=== PATIENT | male | born 1980 | race Caucasian/White ===

== ENCOUNTER 2017-06-23 22:27 | Emergency (ER) | payer MEDICAID, OTHER ==
[2017-06-23] MEDS ORDERED: SODIUM CHLORIDE 0.9% 1,000 ML IV ONE (22:56)
[2017-06-23] MEDS ORDERED: LORazepam 2 MG/ML VIAL IVP STA (22:56)
[2017-06-23 23:16] LABS: BASOPHILS # (AUTO) 0.1 10^3/uL (0.0-0.1); BASOPHILS % (AUTO) 0.9 %; EOSINOPHILS # (AUTO) 0.5 10^3/uL (0.0-0.7); EOSINOPHILS % (AUTO) 5.8 %; HGB - HEMOGLOBIN 15.1 g/dL (14.0-18.0); LYMPHOCYTES # (AUTO) 2.4 10^3/uL (1.5-3.5); LYMPHOCYTES % (AUTO) 30.7 %; MEAN CORPUSCULAR HEMOGLOBIN 31.2 pg (27.0-31.0); MEAN CORPUSCULAR HGB CONC 35.1 g/dL (32.0-36.0); MEAN CORPUSCULAR VOLUME 88.8 fL (80.0-94.0); MEAN PLATELET VOLUME 6.9 fL (7.4-11.4); MONOCYTES # (AUTO) 0.6 10^3/uL (0.0-1.0); MONOCYTES % (AUTO) 7.9 %; NEUTROPHILS # (AUTO) 4.2 10^3/uL (1.5-6.6); NEUTROPHILS % (AUTO) 54.7 %; PLT - PLATELET COUNT 264 10^3/uL (130-450); RED BLOOD COUNT 4.83 10^6/uL (4.70-6.10); RED CELL DISTRIBUTION WIDTH 12.8 % (12.0-15.0); WHITE BLOOD COUNT 7.7 x10^3/uL (4.8-10.8)
[2017-06-23 23:29] LABS: ALBUMIN/GLOBULIN RATIO 1.4 (1.0-2.2); BILIRUBIN,TOTAL 0.7 mg/dL (0.2-1.0); CALCIUM 9.3 mg/dL (8.5-10.3); TOTAL PROTEIN 6.8 g/dL (6.7-8.2)
--- NOTE | 2017-06-23 23:44 | XRAY Report ---
EXAM: CHEST RADIOGRAPHY EXAM DATE: 06/23/2017 11:23 PM. CLINICAL HISTORY: Hypertension. COMPARISON: None. TECHNIQUE: 1 view. FINDINGS: Lungs/Pleura: Small nodular density seen in the left upper lobe, could represent a cross section of a vessel versus pulmonary nodule, measures 5 mm, could be infectious/inflammatory, however malignancy not excluded. Follow-up recommended. Otherwise, no acute cardiopulmonary disease seen. Mediastinum: Within exam limitations, the cardiomediastinal contour is normal. Other: Inferior aspect of the left costophrenic angle excluded from the image. IMPRESSION: Small nodular density seen in the left upper lobe, could represent a cross section of a v essel versus pulmonary nodule, measures 5 mm, could be infectious/inflammatory, however malignancy no t excluded. Follow-up recommended. Otherwise, no acute cardiopulmonary disease seen. [facility] Referring Provider Line: [phone] SITE ID: [id number]
--- NOTE | 2017-06-23 23:44 | XRAY Preliminary Report ---
Exam: XR CHEST 1 VIEW X-RAY IMPRESSION: Small nodular density seen in the left upper lobe, could represent a cross section of a v essel versus pulmonary nodule, measures 5 mm, could be infectious/inflammatory, however malignancy no t excluded. Follow-up recommended. Otherwise, no acute cardiopulmonary disease seen. [facility] SITE ID: [id number]
[2017-06-23] MEDS ORDERED: hydrALAZINE INJ 20 MG/ML VIAL IVP STA (23:51)
--- NOTE | 2017-06-24 00:26 | ED Physician Documentation ---
History of Present Illness - Stated complaint Stated Complaint: HIGH BP - Chief complaint Chief Complaint: Cardiac - History obtained from History obtained from: Patient, Family - History of Present Illness Timing: Today - Additonal information Additional information: Patient is a 36 year old male with no significant past medical history who is presenting to the emergency department for hypertension. According to patient and girlfriend this evening he was at work and he tweaked his back. Patient states that he felt a little funny so he took his blood pressure. Patient reports that it was elevated. Patient reports that he did drink coffee today and he normally doesn't and he also reports that he smokes methamphetamine every day. Review of Systems Constitutional: denies: Fever, Chills Eyes: reports: Decreased vision Ears: denies: Ear pain, Drainage/discharge Nose: denies: Rhinorrhea / runny nose, Congestion, Epistaxis Throat: denies: Dental pain / toothache Cardiac: denies: Chest pain / pressure, Palpitations, Calf pain GI: denies: Nausea, Vomiting : reports: Reviewed and negative Skin: denies: Rash, Lesions Musculoskeletal: reports: Neck pain, Back pain. denies: Extremity pain Neurologic: denies: Generalized weakness, Focal weakness, Confused, Altered mental status, Headache, Head injury Immunocompromised: denies: Immunocompromised PD PAST MEDICAL HISTORY - Past Medical History Past Medical History: Yes Musculoskeletal: Other Other Past Medical History: bone spurs - Past Surgical History Past Surgical History: No - Allergies Allergies/Adverse Reactions: Allergies Allergy/AdvReac Type Severity Reaction Status Date / Time No Known Drug Allergies Allergy Verified 06/23/17 22:38 - Social History Does the pt smoke?: Yes Smoking Status: Current every day smoker Does the pt drink ETOH?: Yes Does the pt have substance abuse?: Yes Substance Use and Type: Meth - Immunizations Immunizations are current?: Yes - POLST Patient has POLST: No PD ED PE NORMAL - Vitals Vital signs reviewed: Yes - General General: Alert and oriented X 3, No acute distress, Well developed/nourished - HEENT HEENT: Atraumatic, PERRL - Neck Neck: Supple, no meningeal sign, No JVD - Cardiac Cardiac: RRR, No murmur - Respiratory Respiratory: No respiratory distress - Abdomen Abdomen: Soft, Non tender, Non distended - Derm Derm: Normal color, Warm and dry, No rash - Extremities Extremities: No deformity, Normal ROM s pain - Neuro Neuro: Alert and oriented X 3, No motor deficit, Normal speech Eye Opening: Spontaneous Motor: Obeys Commands Verbal: Oriented GCS Score: 15 PD ED PE EXPANDED - Cardiac Cardiac: Tachy Results - Vitals Vitals: Vital Signs - 24 hr 06/23/17 06/23/17 06/24/17 22:33 23:35 00:03 Temperature 36.1 C L Heart Rate 105 H 88 84 Respiratory 20 15 14 Rate Blood Pressure 217/131 H 172/134 H 195/131 H O2 Saturation 99 99 92 06/24/17 06/24/17 06/24/17 00:08 00:13 00:18 Temperature Heart Rate Respiratory Rate Blood Pressure 160/131 H 162/108 H 182/107 H O2 Saturation 06/24/17 00:33 Temperature Heart Rate 92 Respiratory 13 Rate Blood Pressure 159/107 H O2 Saturation 92 Oxygen O2 Source Room air - EKG (time done) 2238 Rate: Rate (enter#) (98) Rhythm: NSR [place]: Normal Intervals: Normal TN QRS: Normal Ischemia: Normal ST segments Compare to prior EKG: Old EKG unavailable - Labs Labs: Laboratory Tests 06/23/17 06/23/17 06/23/17 23:05 23:05 23:05 WBC 7.7 RBC 4.83 Hgb 15.1 Hct 42.9 MCV 88.8 MCH 31.2 H MCHC 35.1 RDW 12.8 Plt Count 264 MPV 6.9 L Neut # 4.2 Lymph # 2.4 [place] # 0.6 Eos # 0.5 Baso # 0.1 Absolute Nucleated RBC 0.00 Nucleated RBC % 0.0 Sodium 142 Potassium 3.3 L Chloride 102 Carbon Dioxide 29 Anion Gap 11.0 BUN 14 Creatinine 1.0 Estimated GFR (MDRD) 84 L Glucose 117 H Calcium 9.3 Total Bilirubin 0.7 AST 25 ALT 34 Alkaline Phosphatase 59 Troponin I 0.09 Total Protein 6.8 Albumin 4.0 Globulin 2.8 Albumin/Globulin Ratio 1.4 Lipase 30 - Rads (name of study) chest x-ray Radiology: Final report received (normal) PD MEDICAL DECISION MAKING - ED course Complexity details: reviewed old records, reviewed results, re-evaluated patient , considered differential, d/w patient, d/w family ED course: Patient was seen and examined at bedside. ekg was performed and was nsr. labs were drawn. Patient was treated with ativan. Patient's chest x-ray was normal. Patient's other diagnostics were within normal limits but blood pressure was elevated. Patient was treated with hydralizine 10mg which did improve his blood pressure. Patient's was not started on medication as methamphetamines were likely contributing to the situation. patient and girlfriend were given detailed discharge and follow up instructions. patient required no further work up at this time and was stable for discharge with outpatient follow up. Departure - Departure Disposition: Home, Self Care Clinical Impression: Hypertension Condition: Good Instructions: ED Hypertension New Begin Tx Follow-Up: [facility] [Provider Group] [facility] [Provider Group] Comments: Your blood pressure was elevated today but your other tests were normal. It may be secondary to drug abuse and the first step would to be stop taking methamphetamines. If your pressures remain high then you will need further diagnostics and work up. You have been given the number of two clinics. You will will need to establish follow up care. You may return to the emergency department at any time for new, worsening or uncontrollable symptoms. Discharge Date/Time: 06/24/17 00:47
[2017-06-24 00:34] VITALS: BP 159/107
== END 2017-06-24 00:47 | disposition home or self-care (01) ==
LOC: ED 22:27
DX: I10 Essential (primary) hypertension (principal); F15.90 Other stimulant use, unspecified, uncomplicated; F17.200 Nicotine dependence, unspecified, uncomplicated
CPT/HCPCS: 36415; 71045; 80053; 83690; 84484; 85025; 93005; 96361; 96374; 96375; 99283; 99284; J2060

== ENCOUNTER 2018-05-15 18:24 | Emergency (ER) | payer MEDICAID ==
[2018-05-15] MEDS ORDERED: CEPHALEXIN 250 MG Prepack 8 PO STA (18:44)
[2018-05-15] MEDS ORDERED: TETANUS/DIPHTHERIA/PERTUSSIS 0.5 ML SYRINGE IM ONE (18:46)
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
[2018-05-15 19:00] LABS: BASOPHILS # (AUTO) 0.1 10^3/uL (0.0-0.1); BASOPHILS % (AUTO) 0.6 %; EOSINOPHILS # (AUTO) 0.1 10^3/uL (0.0-0.7); EOSINOPHILS % (AUTO) 0.9 %; HGB - HEMOGLOBIN 14.2 g/dL (14.0-18.0); LYMPHOCYTES # (AUTO) 1.3 10^3/uL (1.5-3.5); LYMPHOCYTES % (AUTO) 12.2 %; MEAN CORPUSCULAR HEMOGLOBIN 32.1 pg (27.0-31.0); MEAN CORPUSCULAR HGB CONC 35.3 g/dL (32.0-36.0); MEAN CORPUSCULAR VOLUME 90.7 fL (80.0-94.0); MEAN PLATELET VOLUME 7.4 fL (7.4-11.4); MONOCYTES # (AUTO) 0.6 10^3/uL (0.0-1.0); MONOCYTES % (AUTO) 6.3 %; NEUTROPHILS # (AUTO) 8.3 10^3/uL (1.5-6.6); PLT - PLATELET COUNT 285 10^3/uL (130-450); RED BLOOD COUNT 4.44 10^6/uL (4.70-6.10); WHITE BLOOD COUNT 10.3 x10^3/uL (4.8-10.8)
[2018-05-15 19:10] LABS: ALBUMIN/GLOBULIN RATIO 1.1 (1.0-2.2); BILIRUBIN,TOTAL 0.8 mg/dL (0.2-1.0); CALCIUM 8.9 mg/dL (8.5-10.3); TOTAL PROTEIN 7.8 g/dL (6.7-8.2)
[2018-05-15 19:17] VITALS: BP 212/132
[2018-05-15] MEDS ORDERED: LISINOPRIL 5 MG TABLET PO STA (19:20)
== END 2018-05-15 19:26 | disposition home or self-care (01) ==
LOC: ED 18:24
DX: L03.115 Cellulitis of right lower limb (principal); I10 Essential (primary) hypertension; Z23 Encounter for immunization; F17.200 Nicotine dependence, unspecified, uncomplicated
CPT/HCPCS: 36415; 80053; 83690; 85025; 90471; 90715; 99283; A9270

== ENCOUNTER 2018-05-20 16:16 | Emergency (ER) | payer MEDICAID ==
[2018-05-20] MEDS ORDERED: SULFAMETH/TRIMETH DS 800/160 MG TABLET PO STA (17:57)
[2018-05-20] MEDS ORDERED: LIDOCAINE MPF 1%-EPI 1:200000 30 ML VIAL SUBQ STA (17:57)
--- NOTE | 2018-05-20 18:37 | XRAY Report ---
Reason: Right leg swelling/redness Procedure Date: 05/20/2018 Accession Number: [id number] / [id number] Procedure: XR - Tib/Fib RT CPT Code: FULL RESULT: EXAM: RIGHT TIBIA/FIBULA RADIOGRAPHY EXAM DATE: 05/20/2018 06:14 PM. CLINICAL HISTORY: Right leg pain. COMPARISON: None. TECHNIQUE: 2 views. FINDINGS: Bones: Normal. No fracture or bone lesion. Joints: The visualized knee and ankle joints are normal. No effusions. Soft Tissues: Soft tissue swelling diffusely. IMPRESSION: Bones intact. [facility]
[2018-05-20] MEDS ORDERED: oxyCODONE 5 MG TABLET PO STA (19:35)
--- NOTE | 2018-05-20 19:52 | ED Physician Documentation ---
PD HPI SKIN - Stated complaint Stated Complaint: RT LEG PX & SWELLING - Chief complaint Chief Complaint: Ext Problem - History obtained from History obtained from: Patient - History of Present Illness Timing - onset: How many days ago (few) Timing - duration: Days (few) Timing - details: Abrupt onset, Still present (he had had onset redness and swelling lower leg and seen in ED, Dx with cellulitis and Rx with Keflex. He says general redness is less, but has increased pain and tenderness in more focal area anteriorly now.) Location: RLE Quality / character: Painful, Discolored, Swelling. No: Vesicular, Draining Associated symptoms: Myalgias. No: Fever, N/V/D Similar symptoms before: Has not had sx before Recently seen: Emergency Dept Review of Systems Constitutional: reports: Myalgias. denies: Fever, Chills GI: denies: Nausea, Vomiting, Diarrhea Skin: reports: Rash, Lesions PD PAST MEDICAL HISTORY - Past Medical History Cardiovascular: None Respiratory: None Neuro: None Endocrine/Autoimmune: None Musculoskeletal: Other - Past Surgical History Past Surgical History: No - Present Medications Home Medications: Ambulatory Orders Medication Instructions Recorded Confirmed Cephalexin [Keflex] 500 mg PO Q6H #28 capsule 05/15/18 05/20/18 Lisinopril [Prinivil] 10 mg PO DAILY #90 tablet 05/15/18 05/20/18 Oxycodone HCl/Acetaminophen 1 - 2 each PO Q6H PRN #14 tablet 05/20/18 [Percocet 5-325 mg Tablet] Sulfamethox/Trimeth 800/160 1 each PO BID #14 tablet 05/20/18 [Bactrim Ds 800/160] - Allergies Allergies/Adverse Reactions: Allergies Allergy/AdvReac Type Severity Reaction Status Date / Time No Known Drug Allergies Allergy Verified 05/20/18 16:38 - Social History Does the pt smoke?: Yes Smoking Status: Current every day smoker Does the pt drink ETOH?: Yes Does the pt have substance abuse?: Yes - Immunizations Immunizations are current?: Yes - POLST Patient has POLST: No PD ED PE NORMAL - Vitals Vital signs reviewed: Yes - General General: Alert and oriented X 3, No acute distress (but is having pain related to the leg infection), Well developed/nourished - Respiratory Respiratory: Clear bilaterally - Derm Derm: Normal color, Warm and dry, Other (right lower leg with redness and tenderness lower part anteriorly. He says the general redness is improved, but having increased local pain ) - Extremities Extremities: Other (right anteromedial lower leg with area or redness, swelling, tender and some more focal induration in about 2-3 cm area which shows fluid collection underlying with bedside U/S. ) - Neuro Neuro: Alert and oriented X 3, No motor deficit, No sensory deficit, Normal speech Results - Vitals Vitals: Oxygen O2 Source Room air - Labs Labs: Microbiology 05/20/18 19:28 Wound Culture - Final Leg - Right Staphylococcus Aureus - Rads (name of study) right tib/fib Radiology: Prelim report reviewed (normal bony structure), See rad report Procedures - Abscess I&D (location) right anterior lower leg Preparation: Confirmed with ultrasound, Lidocaine 1%, With epi Incision: Incised with scalpel, Purulent drainage, Irrigated, Culture obtained. No: Packed Other: Pt tolerated well, Dressing applied, Antibiotic prescribed PD MEDICAL DECISION MAKING - ED course Complexity details: considered differential (cellulitis had coalesced into abscess area anterior lower leg. No bony abn on xray. Did I&D and will give 2nd abx to provide better staph coverage at this point. ), d/w patient Departure - Departure Disposition: 01 Home, Self Care Clinical Impression: Encounter for wound re-check, Abscess, Cellulitis of right leg Hypertension Qualifiers: Hypertension type: unspecified Qualified Code(s): I10 - Essential (primary) hypertension Condition: Stable Record reviewed to determine appropriate education?: Yes Instructions: ED Abscess IandD Prescriptions: Oxycodone HCl/Acetaminophen [Percocet 5-325 mg Tablet] 1 - 2 each PO Q6H PRN #14 tablet PRN Reason: pain Sulfamethox/Trimeth 800/160 [Bactrim Ds 800/160] 1 each PO BID #14 tablet Comments: I would add Bactrim antibiotic to your prior antibiotic. Still continue the prior one. We will have a culture result in 2-3 days and we can narrow the antibiotics at that point. Soak the leg in warm water to promote drainage from the incision whole. Kamar wrap and elevate for swelling. Recheck if not improving well over the next 2-3 days. Use Tylenol or Percocet if needed for pain. Discharge Date/Time: 05/20/18 20:13
[2018-05-20 20:12] VITALS: BP 176/108
== END 2018-05-20 20:13 | disposition home or self-care (01) ==
LOC: ED 16:16
DX: L02.415 Cutaneous abscess of right lower limb (principal); L03.115 Cellulitis of right lower limb; I10 Essential (primary) hypertension; F17.200 Nicotine dependence, unspecified, uncomplicated
CPT/HCPCS: 10060; 73590; 87070; 87181; 87205; 99283; A9270

== ENCOUNTER 2020-01-23 16:26 | Emergency (ER) | payer MEDICAID ==
[2020-01-23] MEDS ORDERED: BUFFERED LIDOCAINE 10 ML SYRINGE SUBQ STA (16:55)
[2020-01-23] MEDS ORDERED: BACITRACIN ZINC OINT 1 PACKET TOP STA (17:10)
--- NOTE | 2020-01-23 17:12 | ED Physician Documentation ---
History of Present Illness - Stated complaint Stated Complaint: RT ARM LAC - Chief complaint Chief Complaint: Laceration - Additonal information Additional information: 39-year-old male presents to the emergency department with a 3.5 cm laceration to the right forearm sustained when working on his metal leg this afternoon. Patient is right-hand dominant. Bleeding is controlled with pressure. The wound is full-thickness and exposed but non-lacerated muscle body is seen below the laceration.Reports tetanus is up-to-date Review of Systems Constitutional: reports: Reviewed and negative Ears: reports: Reviewed and negative Nose: reports: Reviewed and negative Throat: reports: Reviewed and negative Cardiac: reports: Reviewed and negative Respiratory: reports: Reviewed and negative GI: reports: Reviewed and negative : reports: Reviewed and negative Skin: reports: Laceration (s) (right forearm) Musculoskeletal: reports: Reviewed and negative Neurologic: reports: Reviewed and negative PD PAST MEDICAL HISTORY - Past Medical History Cardiovascular: None Respiratory: None Neuro: None Endocrine/Autoimmune: None Musculoskeletal: Other - Past Surgical History Past Surgical History: No - Present Medications Home Medications: Ambulatory Orders Medication Instructions Recorded Confirmed Cephalexin [Keflex] 500 mg PO Q6H #28 capsule 05/15/18 05/20/18 lisinopriL [Prinivil] 10 mg PO DAILY #90 tablet 05/15/18 05/20/18 Oxycodone HCl/Acetaminophen 1 - 2 each PO Q6H PRN #14 tablet 05/20/18 [Percocet 5-325 mg Tablet] Sulfamethox/Trimeth 800/160 1 each PO BID #14 tablet 05/20/18 [Bactrim Ds 800/160] - Allergies Allergies/Adverse Reactions: Allergies Allergy/AdvReac Type Severity Reaction Status Date / Time No Known Drug Allergies Allergy Verified 01/23/20 16:37 - Social History Does the pt smoke?: Yes Smoking Status: Current every day smoker Does the pt drink ETOH?: Yes Does the pt have substance abuse?: Yes - Immunizations Immunizations are current?: Yes - POLST Patient has POLST: No PD ED PE NORMAL - General General: Alert and oriented X 3, No acute distress - HEENT HEENT: PERRL - Cardiac Cardiac: RRR, No murmur - Respiratory Respiratory: Clear bilaterally - Derm Derm: Normal color, Warm and dry, Other (3.5 cm linear laceration right forearm palmar side.Grasp against resistance distally. Patient able to extend fingers against resistance distally. 2+ radial and ulnar pulse distally) Results - Vitals Vitals: Vital Signs - 24 hr 01/23/20 16:37 Temperature 37 C Heart Rate 97 Respiratory 16 Rate Blood Pressure 190/145 H O2 Saturation 100 Oxygen O2 Source Room air - Rads (name of study) right forearm Radiology: EMP read indepedently (No Foreign body identified) Procedures - Laceration (location) right forearm Length in cm: 3.5 Wound type: Linear Neurovascular status: Sensory intact, Motor intact, Vascular intact Tendon involvement: Tendon intact Anesthesia: Lidocaine 1% Wound Preparation: Hibiclens, Irrigated copiously NS Skin layer closure: Nylon, Size #-0 - enter number (4), Sutures - enter # (3) Other: Patient tolerated well, No complications, Dressing applied, Tetanus UTD Complexity: Simple PD MEDICAL DECISION MAKING - ED course Complexity details: reviewed results, considered differential, d/w patient, d/w family ED course: 1-year-old female presents to the emergency department for evaluation of a laceration sustained this afternoon when working on a metal lathe. Wound was closed easily with 3 four-point 0 nylon sutures. Though the wound is full- thickness and exposed muscle body is seen there does not appear to be a l aceration of the muscle body. An x-ray does not show any foreign body or metal fragments. Patient's tetanus is up today routine wound care and return precautions discussed Departure - Departure Disposition: 01 Home, Self Care Clinical Impression: Forearm laceration Qualifiers: Encounter type: initial encounter Laterality: right Qualified Code(s): S51.811A - Laceration without foreign body of right forearm, initial encounter Condition: Stable Record reviewed to determine appropriate education?: Yes Instructions: ED Laceration All Comments: Your suture should be removed in about 7 days. In 24 hours you may remove your bandage and gently wash the cut with warm soap and water, apply any thin layer of antibiotic ointment and then a dry bandage. If you develop redness, have increased pain fevers or red streaking or any concerns of infection please return to the emergency department for second look.
--- NOTE | 2020-01-23 17:25 | XRAY Report ---
PROCEDURE: Forearm RT INDICATIONS: r/o metal foreign body TECHNIQUE: 2 views of the forearm were acquired. COMPARISON: None. FINDINGS: Bones: No fractures or dislocations. No suspicious bony lesions. Soft tissues: No suspicious soft tissue calcifications or masses. IMPRESSION: No forearm fracture or dislocation. No radiopaque foreign body. Reviewed by: Demetris Castañeda MD on 01/23/2020 4:24 PM [facility] Approved by: Demetris Castañeda MD on 01/23/2020 4:24 PM [facility] Station ID: [id number]
[2020-01-23 17:29] VITALS: BP 182/105
== END 2020-01-23 17:29 | disposition home or self-care (01) ==
LOC: ED 16:26
DX: S51.811A Laceration without foreign body of right forearm, initial encounter (principal); W31.1XXA Contact with metalworking machines, initial encounter; Y93.89 Activity, other specified; Y92.008 Other place in unspecified non-institutional (private) residence as the place of occurrence of the external cause; F17.200 Nicotine dependence, unspecified, uncomplicated
CPT/HCPCS: 12002; 73090; 99282; 99283; A9270

== ENCOUNTER 2020-07-20 18:48 | Emergency (ER) | payer MEDICAID ==
--- NOTE | 2020-07-20 20:04 | ED Physician Documentation ---
History of Present Illness - Stated complaint Stated Complaint: DIZZY - Chief complaint Chief Complaint: General - History obtained from History obtained from: Patient - History of Present Illness Timing: How many days ago (2) Pain level max: 0 Pain level now: 0 Improved by: nothing Worsened by: no exacerbating factors Associated symptoms: nausea - Additonal information Additional information: patient woke up in the morning two days ago with symptoms of double vision, dizziness, mild nausea, and sensation of uncoordinated movements involving right arm and leg. Denies h/o similar symptoms. He says the double vision is only when both eyes are open and not worse with looking in any particular direction. He feels as though his left eye is directed where he is trying to look but that his right eye seems to "drift" laterally from intended visual target. He denies weakness, denies headache. He did not seek medical attention until now because "I thought it would go away, but it didn't". Drove self to ED. He also says he accidentally poked himself in the right eye recently, although this was approximately 2 weeks ago and his symptoms didn't start until 2 days [employer]. Review of Systems Constitutional: reports: Reviewed and negative Eyes: reports: Other (double vision). denies: Loss of vision, Decreased vision, Photophobia Cardiac: reports: Reviewed and negative Respiratory: reports: Reviewed and negative GI: reports: Nausea. denies: Abdominal Pain, Vomiting : denies: Dysuria, Frequency Neurologic: denies: Generalized weakness, Focal weakness, Numbness, Headache PD PAST MEDICAL HISTORY - Past Medical History Cardiovascular: None Respiratory: None Neuro: None Endocrine/Autoimmune: None Musculoskeletal: Other - Past Surgical History Past Surgical History: No - Present Medications Home Medications: Ambulatory Orders Medication Instructions Recorded Confirmed lisinopriL [Prinivil] 10 mg PO DAILY #90 tablet 05/15/18 05/20/18 Ondansetron Odt [Zofran] 4 mg TL Q6H PRN #10 tablet 07/21/20 - Allergies Allergies/Adverse Reactions: Allergies Allergy/AdvReac Type Severity Reaction Status Date / Time No Known Drug Allergies Allergy Verified 07/20/20 18:52 - Social History Does the pt smoke?: Yes Smoking Status: Current every day smoker Does the pt drink ETOH?: Yes Does the pt have substance abuse?: Yes - Immunizations Immunizations are current?: Yes - POLST Patient has POLST: No PD ED PE NORMAL - Vitals Vital signs reviewed: Yes - General General: Alert and oriented X 3, No acute distress, Well developed/nourished - HEENT HEENT: Atraumatic, PERRL, EOMI, Moist mucous membranes - Neck Neck: Supple, no meningeal sign - Cardiac Cardiac: RRR, No murmur - Respiratory Respiratory: No respiratory distress, Clear bilaterally - Abdomen Abdomen: Soft, Non tender - Neuro Neuro: Alert and oriented X 3, bank analyst 2-12 intact, No motor deficit, No sensory deficit, Normal speech, Other (normal bilateral [id number] and normal bilateral heel/torres) Eye Opening: Spontaneous Motor: Obeys Commands Verbal: Oriented GCS Score: 15 PD ED PE EXPANDED - Eyes Eyes: PERRL, EOMI, Normal fundi Results - Vitals Vitals: Vital Signs - 24 hr 07/20/20 07/20/20 07/21/20 23:00 23:39 01:52 Temperature 36.7 C 36.8 C 36.7 C Heart Rate 66 73 Respiratory 12 16 Rate Blood Pressure 179/136 H 151/112 H O2 Saturation 98 99 Oxygen O2 Source Room air - Labs Labs: Laboratory Tests 07/20/20 07/20/20 19:30 19:30 WBC 9.2 RBC 5.31 Hgb 16.6 Hct 46.7 MCV 87.9 MCH 31.3 H MCHC 35.5 RDW 12.8 Plt Count 334 MPV 9.2 Neut # (Auto) 6.7 H Lymph # (Auto) 1.8 [place] # (Auto) 0.5 Eos # (Auto) 0.2 Baso # (Auto) 0.1 Absolute Nucleated RBC 0.00 Nucleated RBC % 0.0 Sodium 140 Potassium 3.1 L Chloride 101 Carbon Dioxide 29 Anion Gap 10.0 BUN 13 Creatinine 1.2 Estimated GFR (MDRD) 67 L Glucose 101 H Calcium 9.5 Total Bilirubin 1.0 AST 18 ALT 28 Alkaline Phosphatase 87 Total Protein 7.7 Albumin 4.4 Globulin 3.3 Albumin/Globulin Ratio 1.3 Lipase 27 - Rads (name of study) CTA head Radiology: Prelim report reviewed, See rad report CTA neck Radiology: Prelim report reviewed, See rad report PD MEDICAL DECISION MAKING - ED course Complexity details: reviewed results, re-evaluated patient, considered differential, d/w patient ED course: despite c/o diplopia, there is no dysconjugate gaze on exam and extra-occular muscles are intact on exam. he has full and equal strength in BUE and BLE and no difficulty with yqmdmd-uh-psog nor heel down torres bilaterally. His tests tonight are unremarkable including CTA head and neck. I discussed with him the lack of diagnosis at this point but the need for follow up, as further testing might be necessary. CVA considered and is unlikely given lack of findings on exam and angiograms, but patient might benefit from outpatient MRI and, again, I encouraged him to pursue follow up as soon as can be arranged, and to return to ED if worse in any way. Departure - Departure Disposition: 01 Home, Self Care Clinical Impression: Diplopia Condition: Good Instructions: ED Double Vision Follow-Up: Vikash Lemus DO [Provider Admit Priv/Credential] - Within 1 week Prescriptions: Ondansetron Odt [Zofran] 4 mg TL Q6H PRN #10 tablet PRN Reason: Nausea / Vomiting Discharge Date/Time: 07/21/20 01:59
[2020-07-20 20:31] LABS: BASOPHILS # (AUTO) 0.1 10^3/uL (0.0-0.1); BASOPHILS % (AUTO) 0.7 %; EOSINOPHILS # (AUTO) 0.2 10^3/uL (0.0-0.7); HCT - HEMATOCRIT 46.7 % (42.0-52.0); HGB - HEMOGLOBIN 16.6 g/dL (14.0-18.0); LYMPHOCYTES # (AUTO) 1.8 10^3/uL (1.5-3.5); LYMPHOCYTES % (AUTO) 19.3 %; MEAN CORPUSCULAR HEMOGLOBIN 31.3 pg (27.0-31.0); MEAN CORPUSCULAR HGB CONC 35.5 g/dL (32.0-36.0); MEAN CORPUSCULAR VOLUME 87.9 fL (80.0-94.0); MEAN PLATELET VOLUME 9.2 fL (7.4-11.4); MONOCYTES # (AUTO) 0.5 10^3/uL (0.0-1.0); MONOCYTES % (AUTO) 5.7 %; NEUTROPHILS # (AUTO) 6.7 10^3/uL (1.5-6.6); NEUTROPHILS % (AUTO) 72.1 %; PLT - PLATELET COUNT 334 10^3/uL (130-450); RED BLOOD COUNT 5.31 10^6/uL (4.70-6.10); RED CELL DISTRIBUTION WIDTH 12.8 % (12.0-15.0); WHITE BLOOD COUNT 9.2 x10^3/uL (4.8-10.8)
[2020-07-20 20:41] LABS: ALBUMIN 4.4 g/dL (3.2-5.5); ALBUMIN/GLOBULIN RATIO 1.3 (1.0-2.2); CALCIUM 9.5 mg/dL (8.5-10.3); CREATININE 1.2 mg/dL (0.6-1.2); POTASSIUM 3.1 mmol/L (3.5-5.0); TOTAL PROTEIN 7.7 g/dL (6.7-8.2)
[2020-07-20] MEDS ORDERED: IOVERSOL 320 100 ML VIAL IVP ONE ×2 (20:45→21:12)
--- NOTE | 2020-07-20 22:02 | CT Report ---
PROCEDURE: ANGIO HEAD W/WO INDICATIONS: L sided facial droop CONTRAST: IV CONTRAST: Optiray 320 ml: 100 PO CONTRAST: *NO PO CONTRAST TECHNIQUE: Precontrast 4.5 mm thick angled axial sections acquired from the foramen magnum to the vertex. Afte r the administration of intravenous contrast, 1 mm thick sections acquired through the [place] of [place] is. Postcontrast 4.5 mm thick sections then re-acquired from the foramen magnum to the vertex. 3-di mensional rvahchq-iqudefowm-igdbekevoa (MIP) and/or volume rendering reformats were acquired of the c entral intracranial vasculature. For radiation dose reduction, the following was used: automated ex posure control, adjustment of mA and/or kV according to patient size. COMPARISON: CTA neck 07/20/2020 FINDINGS: Image quality: Excellent. Anterior circulation: Intracranial internal carotid arteries are normal in size and flow. The flow within the paired anterior cerebral arteries is normal and symmetric. The flow within the middle cer ebral arteries is normal and symmetric. The anterior communicating artery is seen. No aneurysms are seen. Posterior circulation: Visualized portions of the vertebral arteries demonstrate normal caliber, and join to form a normal appearing basilar artery. Flow within the posterior cerebral arteries is norm al and symmetric. No aneurysms are seen. CSF spaces: Ventricles are normal in size and shape. Basal cisterns are patent. No extra-axial flu id collections. Brain: No midline shift. No intracranial bleeds or masses. [place]-white matter interface appears int act. Skull and face: Calvarium and facial bones appear intact, without suspicious lesions. Sinuses: Visualized sinuses and mastoids are clear. IMPRESSION: 1. No acute intracranial process. 2. No areas of hemodynamically significant stenosis, vascular occlusion or aneurysmal dilation within the anterior or posterior circulation. Reviewed by: Paola Lawson MD on 07/20/2020 10:00 PM PDT Approved by: Paola Lawson MD on 07/20/2020 10:00 PM PDT Station ID: [id number]
--- NOTE | 2020-07-20 22:03 | CT Report ---
PROCEDURE: ANGIO NECK W INDICATIONS: L sided facial droop, L neck pain CONTRAST: IV CONTRAST: Optiray 320 ml: 100 PO CONTRAST: *NO PO CONTRAST TECHNIQUE: After the administration of intravenous contrast, 1.5 mm axial sections acquired from the aortic arch to the [place] of [place]. Coronal 3-D maximum intensity projection (MIP) and/or volume rendering ref ormats were then performed. For radiation dose reduction, the following was used: automated exposur e control, adjustment of mA and/or kV according to patient size. COMPARISON: CT head 07/20/2020 FINDINGS: Image quality: Excellent. Carotid system: The great vessels demonstrate a conventional anatomy as they arise from the aortic a rch. The origins of the common carotid arteries appear patent. The common carotid arteries demonstr ate normal calibers and courses. The bifurcation regions appear normal bilaterally. The internal ca rotid arteries demonstrate normal caliber and course. Posterior circulation: The origins of the vertebral arteries appear patent. The more superior porti ons of the vertebral arteries demonstrate normal course and caliber. They join to form a normal appe aring basilar artery. Soft tissues: Visualized neck soft tissues demonstrate no suspicious abnormalities. The thyroid gla nd is normal in size. Bones: No suspicious bony lesions. Visualized cervical spine demonstrates mild reversal with apex a t C4. IMPRESSION: 1. There are no areas of hemodynamically significant stenosis, vascular occlusion or aneurysmal dilat ion within the neck vasculature. The estimate of stenosis included in the report of the imaging study was calculated using the NASCET method Reviewed by: Paola Lawson MD on 07/20/2020 10:02 PM PDT Approved by: Paola Lawson MD on 07/20/2020 10:02 PM PDT Station ID: [id number]
[2020-07-21] MEDS ORDERED: ONDANSETRON ODT 4 MG TABLET TL STA (00:05)
[2020-07-21] MEDS ORDERED: ONDANSETRON ODT 4 MG Prepack 2 TL PRN (01:50)
[2020-07-21 01:53] VITALS: BP 151/112
== END 2020-07-21 01:59 | disposition home or self-care (01) ==
LOC: ED 18:48
DX: H53.2 Diplopia (principal); F17.200 Nicotine dependence, unspecified, uncomplicated
CPT/HCPCS: 36415; 70496; 70498; 80053; 83690; 85025; 99284; Q0162; Q9967

== ENCOUNTER 2020-11-25 02:52 | Emergency (ER) | payer MEDICAID ==
[2020-11-25] MEDS ORDERED: KETOROLAC 30 MG/ML VIAL IM STA (03:13)
[2020-11-25] MEDS ORDERED: amLODIPine 5 MG TABLET PO STA (03:13)
[2020-11-25] MEDS ORDERED: CIPROFLOX/DEXAMETH OTIC DROPS LEFTEAR SCH ×2 (03:18→09:00)
--- NOTE | 2020-11-25 03:19 | ED Physician Documentation ---
History of Present Illness - Stated complaint Stated Complaint: EAR PX - Chief complaint Chief Complaint: Heent - History obtained from History obtained from: Patient - Additonal information Additional information: 40-year-old man with history of high blood pressure not on medication presents with left ear pain over the past couple of days. Patient was cleaning with a Q- tip and thinks that he scratched his ear. He then inserted a Q-tip followed Neosporin in the ear. This happened 2 days ago and since that time has had progressive pain in the ear that is worse with pulling on the earlobe, aching, constant, 4 out of 10 at baseline and then throbbing to a 7 out of 10. also with high blood pressure here in the ED. Patient states he has been told he has high blood pressure in the past but has trouble navigating healthcare and has not started taking blood pressure medications. Denies chest pain, shortness of breath, lightheadedness, nausea, or other symptoms. He does endorse some blurring of vision over the past year that is nonworsening tonight. He attributes this to his eyes "getting old". Review of Systems Constitutional: denies: Fever Ears: reports: Ear pain, Drainage/discharge Cardiac: denies: Chest pain / pressure Respiratory: denies: Dyspnea GI: denies: Nausea Neurologic: denies: Focal weakness, Numbness, Headache PD PAST MEDICAL HISTORY - Past Medical History Past Medical History: Yes Cardiovascular: None Respiratory: None Neuro: None Endocrine/Autoimmune: None GI: None : None HEENT: None Psych: None Musculoskeletal: Other Derm: None - Past Surgical History Past Surgical History: No - Present Medications Home Medications: Ambulatory Orders Medication Instructions Recorded Confirmed amLODIPine [Norvasc] 5 mg PO DAILY #30 tablet 11/25/20 - Allergies Allergies/Adverse Reactions: Allergies Allergy/AdvReac Type Severity Reaction Status Date / Time No Known Drug Allergies Allergy Verified 11/25/20 03:05 - Social History Does the pt smoke?: Yes Smoking Status: Current every day smoker Does the pt drink ETOH?: Yes Does the pt have substance abuse?: Yes - Immunizations Immunizations are current?: Yes - POLST Patient has POLST: No PD ED PE NORMAL - Vitals Vital signs reviewed: Yes - General General: Alert and oriented X 3, No acute distress, Well developed/nourished - HEENT HEENT: Atraumatic, PERRL, EOMI, Moist mucous membranes, Other (R TM clear. L TM nonvisualized 2/2 purulence and swelling in ext auditory canal. no visible bleeding or abrasion. discomfort with pulling on the earlobe) - Neck Neck: Supple, no meningeal sign - Cardiac Cardiac: RRR - Respiratory Respiratory: No respiratory distress, Clear bilaterally - Derm Derm: Normal color, Warm and dry - Extremities Extremities: No edema - Neuro Neuro: Alert and oriented X 3, No motor deficit, No sensory deficit - Psych Psych: Normal mood, Normal affect Results - Vitals Vitals: Vital Signs - 24 hr 11/25/20 11/25/20 02:54 03:08 Temperature 36.4 C L Heart Rate 96 100 Respiratory 18 18 Rate Blood Pressure 206/120 H 205/121 H O2 Saturation 98 100 Oxygen O2 Source Room air PD MEDICAL DECISION MAKING - ED course ED course: 40-year-old man presents with asymptomatic hypertension and left-sided otitis externa. Antibiotic eardrops prescribed and antihypertensive prescribed. Str ict return precautions given. Patient will follow up with a primary doctor. Departure - Departure Disposition: 01 Home, Self Care Clinical Impression: Hypertension, Otitis externa Condition: Good Instructions: ED Otitis Externa, Hypertension Control Prescriptions: amLODIPine [Norvasc] 5 mg PO DAILY #30 tablet Comments: You were seen in the emergency department for high blood pressure and ear infection. Take your antibiotic eardrops twice daily as prescribed until the bottle is empty. Fill your prescription for blood pressure medicine immediately and follow-up with your primary doctor. You can go to the [facility] walk-in clinic or can establish care with one of the doctors I am recommending. Return to the emergency department if you have any new or worsening symptoms or other concerns.
[2020-11-25] MEDS ORDERED: amLODIPine 5 MG TABLET ONE (03:26)
[2020-11-25] MEDS ORDERED: KETOROLAC 30 MG/ML VIAL ONE (03:27)
[2020-11-25] MEDS ORDERED: CIPROFLOX/DEXAMETH OTIC DROPS ONE (03:28)
[2020-11-25 03:51] VITALS: BP 197/118
== END 2020-11-25 03:51 | disposition home or self-care (01) ==
LOC: ED 02:52
DX: H60.92 Unspecified otitis externa, left ear (principal); I10 Essential (primary) hypertension; F17.200 Nicotine dependence, unspecified, uncomplicated
CPT/HCPCS: 96372; 99283; 99284; A9270

== ENCOUNTER 2021-08-11 08:00 | Outpatient (CLI) | payer MEDICAID ==
[2021-08-11 21:25] LABS: CC,BF RBC 466000 /mm^3; CC,BF WBC 586 /mm^3
[2021-08-11 21:26] LABS: EOSINOPHILS %,BODY FLUID 1 %; LYMPHOCYTES %,BODY FLUID 37 %; MONOCYTES %,BODY FLUID 7 %; NEUTROPHILS %, BF 53 %; OTHER CELLS %,BODY FLUID 2 %
[2021-08-11 21:27] LABS: BF CLARITY TURBID; BF COLOR BLOODY; BF SOURCE JOINT
== END 2021-08-11 08:01 | disposition home or self-care (01) ==
LOC: LAB.S 08:00
PROVIDERS: ATTEND Physician Assistant Medical
DX: M70.21 Olecranon bursitis, right elbow (principal)
CPT/HCPCS: 87070; 87205; 89051

== ENCOUNTER 2021-08-13 08:00 | Outpatient (CLI) | payer MEDICAID ==
[2021-08-13 20:12] LABS: BASOPHILS # (AUTO) 0.1 10^3/uL (0.0-0.1); BASOPHILS % (AUTO) 0.8 %; EOSINOPHILS # (AUTO) 0.1 10^3/uL (0.0-0.7); EOSINOPHILS % (AUTO) 1.1 %; HCT - HEMATOCRIT 41.3 % (42.0-52.0); HGB - HEMOGLOBIN 13.9 g/dL (14.0-18.0); LYMPHOCYTES # (AUTO) 1.8 10^3/uL (1.5-3.5); LYMPHOCYTES % (AUTO) 22.4 %; MEAN CORPUSCULAR HGB CONC 33.7 g/dL (32.0-36.0); MEAN CORPUSCULAR VOLUME 95.2 fL (80.0-94.0); MEAN PLATELET VOLUME 9.5 fL (7.4-11.4); MONOCYTES # (AUTO) 0.6 10^3/uL (0.0-1.0); MONOCYTES % (AUTO) 7.4 %; NEUTROPHILS # (AUTO) 5.4 10^3/uL (1.5-6.6); NEUTROPHILS % (AUTO) 67.8 %; PLT - PLATELET COUNT 302 10^3/uL (130-450); RED BLOOD COUNT 4.34 10^6/uL (4.70-6.10); RED CELL DISTRIBUTION WIDTH 13.5 % (12.0-15.0)
[2021-08-13 20:22] LABS: ALBUMIN 4.2 g/dL (3.2-5.5); ALBUMIN/GLOBULIN RATIO 1.4 (1.0-2.2); BILIRUBIN,TOTAL 0.5 mg/dL (0.2-1.0); CALCIUM 9.2 mg/dL (8.5-10.3); CREATININE 1.1 mg/dL (0.6-1.2); POTASSIUM 4.1 mmol/L (3.5-5.0); TOTAL PROTEIN 7.1 g/dL (6.7-8.2)
[2021-08-13 20:52] LABS: THYROID STIMULATING HORMONE 1.94 uIU/mL (0.34-5.60)
== END 2021-08-13 23:59 | disposition home or self-care (01) ==
LOC: LAB.S 08:00
PROVIDERS: ATTEND Physician Assistant Medical
DX: F32.A Depression, unspecified (principal)
CPT/HCPCS: 36415; 80053; 84443; 85025

== ENCOUNTER 2022-10-29 08:20 | Outpatient (CLI) | payer MEDICAID ==
[2022-10-29 14:24] LABS: BASOPHILS # (AUTO) 0.1 10^3/uL (0.0-0.1); BASOPHILS % (AUTO) 0.8 %; EOSINOPHILS # (AUTO) 0.4 10^3/uL (0.0-0.7); EOSINOPHILS % (AUTO) 5.6 %; HCT - HEMATOCRIT 44.7 % (42.0-52.0); HGB - HEMOGLOBIN 15.1 g/dL (14.0-18.0); LYMPHOCYTES # (AUTO) 1.7 10^3/uL (1.5-3.5); LYMPHOCYTES % (AUTO) 23.9 %; MEAN CORPUSCULAR HEMOGLOBIN 31.1 pg (27.0-31.0); MEAN CORPUSCULAR HGB CONC 33.8 g/dL (32.0-36.0); MEAN PLATELET VOLUME 9.5 fL (7.4-11.4); MONOCYTES # (AUTO) 0.5 10^3/uL (0.0-1.0); NEUTROPHILS # (AUTO) 4.6 10^3/uL (1.5-6.6); NEUTROPHILS % (AUTO) 62.4 %; PLT - PLATELET COUNT 317 10^3/uL (130-450); RED BLOOD COUNT 4.86 10^6/uL (4.70-6.10); WHITE BLOOD COUNT 7.3 x10^3/uL (4.8-10.8)
[2022-10-29 14:45] LABS: ALBUMIN 3.9 g/dL (3.2-5.5); ALBUMIN/GLOBULIN RATIO 1.2 (1.0-2.2); ALKALINE PHOSPHATASE 62 IU/L (42-121); ALT ALANINE AMINOTRANSFERASE 24 IU/L (10-60); AST ASPARTATE AMINOTRANSFERASE 19 IU/L (10-42); BILIRUBIN,TOTAL 0.5 mg/dL (0.2-1.0); BUN - BLOOD UREA NITROGEN 13 mg/dL (6-20); CALCIUM 8.8 mg/dL (8.5-10.3); CARBON DIOXIDE - CO2 26 mmol/L (21-32); CHLORIDE 108 mmol/L (101-111); CHOL/HDL RATIO 3.6 (<5.0); CHOLESTEROL 173 mg/dL; CREATININE 1.3 mg/dL (0.6-1.2); GFR - MDRD 60 (>89); GLUCOSE 137 mg/dL (70-100); HDL CHOLESTEROL 48 mg/dL; LDL CHOLESTEROL,CALCULATED 90 mg/dL; LDL/HDL RATIO 1.9 (<3.6); POTASSIUM 3.7 mmol/L (3.5-5.0); SODIUM 139 mmol/L (135-145); TOTAL PROTEIN 7.1 g/dL (6.7-8.2); TRIGLYCERIDES 175 mg/dL; VLDL CHOLESTEROL 35 mg/dL
== END 2022-10-29 08:21 | disposition home or self-care (01) ==
LOC: LAB.S 08:20
PROVIDERS: ATTEND Registered Nurse
DX: I10 Essential (primary) hypertension (principal); Z13.220 Encounter for screening for lipoid disorders
CPT/HCPCS: 36415; 80053; 80061; 83721; 85025

== ENCOUNTER 2023-01-01 07:51 | Outpatient (CLI) | payer MEDICAID | END 2023-01-01 07:52 | disposition home or self-care (01) | LOC: LAB.S 07:51 | PROVIDERS: ATTEND Registered Nurse | DX: Z80.42 Family history of malignant neoplasm of prostate (principal) | CPT/HCPCS: 36415; 84153 ==